=== PATIENT | female | born 1955 | race Two or more races ===

== ENCOUNTER 2016-08-30 13:04 | Inpatient (IN) | payer OTHER ==
[~2016-08-30] VITALS: Ht 162.6 cm; Wt 91.6 kg
--- NOTE | 2016-08-30 13:07 | NUR ---
AAOX3, CAME TO ER C/O EPIGASTRIC PAIN. RESPIRATION IS EVEN AND UNLABORED WITH NAD NOTED. SKIN IS WARM AND DRY. ASSISTED TO HOSPITAL GOWN, PLACED ON MONITOR AND WILL CONTINUOUSLY MONITOR THE PATIENT. AWAITING MD FOR EVAL.
[2016-08-30] MEDS ORDERED: ASPIRIN 325 MG TABLET ONE (13:28)
[2016-08-30] MEDS ORDERED: ASPIRIN 325 MG TABLET PO ONE (13:30)
[2016-08-30 13:31] LABS: BASOPHILS # (AUTO) 0.1 /CMM (0.0-0.2); BASOPHILS % (AUTO) 0.6 % (0.0-2.0); EOSINOPHILS # (AUTO) 0.1 /CMM (0.0-0.7); EOSINOPHILS % (AUTO) 0.5 % (0.0-6.0); HEMATOCRIT 44 % (33-45); HEMOGLOBIN 14.7 g/dL (11.5-14.8); LYMPHOCYTES # (AUTO) 1.6 /CMM (0.8-4.8); LYMPHOCYTES % (AUTO) 14.4 % (20.0-44.0); MEAN CORPUSCULAR HEMOGLOBIN 28 PG (26.0-33.0); MEAN CORPUSCULAR HGB CONC 33 g/dl (31.0-36.0); MEAN CORPUSCULAR VOLUME 83 fL (82-100); MONOCYTES # (AUTO) 0.4 /CMM (0.1-1.30); MONOCYTES % (AUTO) 3.9 % (2.0-12.0); NEUTROPHILS # (AUTO) 9.1 /CMM (1.8-8.9); NEUTROPHILS % (AUTO) 80.6 % (43.0-81.0); PLATELET COUNT (AUTO) 306 /CMM (150-450); RDW COEFFICIENT OF VARIATION 13.1 (11.5-15.0); RED BLOOD CELL COUNT(AUTO) 5.31 MIL/uL (4.0-5.2); WHITE BLOOD COUNT (AUTO) 11.3 K/uL (4.3-11.0)
--- NOTE | 2016-08-30 13:37 | NUR ---
CHEST XRAY IN PROGRESS AT BS
[2016-08-30 13:41] LABS: CARBON DIOXIDE 28 mmol/L (21-32); CHLORIDE 102 mmol/L (98-107); CREATININE 0.8 mg/dL (0.6-1.3); GFR 73 mL/min (>60); GLUCOSE 133 mg/dL (74-106); POTASSIUM 4.3 mmol/L (3.5-5.1); SODIUM SERUM 139 mmol/L (136-145); UREA NITROGEN, BLOOD 15 mg/dL (7-18)
[2016-08-30 13:45] LABS: INR 0.97 (0.87-1.13); PROTHROMBIN TIME 10.1 SECS (9.5-12.7)
[2016-08-30] MEDS ORDERED: CT SWABBABLE VALVE TRANS SET 1 EA INFUS.SET MC ONE (13:45)
[2016-08-30] MEDS ORDERED: IV NS 0.9% 250 ML IV ONE (13:45)
[2016-08-30] MEDS ORDERED: IOHEXOL-300 100 ML VIAL IV ONE (13:45)
[2016-08-30 13:49] LABS: TROPONIN I < 0.017 ng/mL (0.00-0.056)
--- NOTE | 2016-08-30 14:05 | NUR ---
PATIENT CAME BACK FROM CT ABDOMEN.
--- NOTE | 2016-08-30 15:07 | NUR ---
CALLED NURSING SUP. FOR TELE BED
--- NOTE | 2016-08-30 15:08 | NUR ---
[facility], DR.VU DAVIS OPERATIONAL INTELLIGENCE ANALYST
[2016-08-30] MEDS ORDERED: LOSA1TAB9 PO (15:25)
--- NOTE | 2016-08-30 16:14 | NUR ---
Report given to GERALD Atkinson for ANGELINE Tele 118-2.
[2016-08-30 16:30] VITALS: BP 163/89
--- NOTE | 2016-08-30 16:30 | NUR ---
RN NOTES RECEIVED PT FROM ER , A/Ox4, RESPIRATION EVEN AND UNLABORED, ON RA BRIE ANY SOB, C/O EPIGASTRIC PAIN, NO SKIN ISSUE NOTED, ON TELE SR IN 80'S , SR UP x3, CALL LIGHT WITHIN EASY REACH, PT ORIENTED TO ROOM AND SURROUNDING, CONTINUE PAIN MANAGEMENT AND CALL MD FOR ANY SIGNIFICANT CHANGES
[2016-08-30 17:00] VITALS: BP 163/89
[2016-08-30] MEDS ORDERED: MAG HYDROX/AL HYDROX/SIMETH 30 ML UDC PO PRN (17:00)
[2016-08-30] MEDS ORDERED: NITROGLYCERIN 0.4 MG/TAB BOTTLE SL PRN (17:00)
[2016-08-30] MEDS ORDERED: HYDROCODONE/APAP 5/325MG 1 EACH TABLET PO PRN (17:00)
[2016-08-30] MEDS ORDERED: ZOLPIDEM TARTRATE 5 MG TABLET PO PRN (17:00)
[2016-08-30] MEDS ORDERED: MORPHINE SULFATE INJ 2 MG/ML DISP.SYRIN IV PRN (17:00)
[2016-08-30] MEDS ORDERED: Z GUARD REMEDY 2 OZ OINT TP PRN (17:00)
[2016-08-30] MEDS ORDERED: ACETAMINOPHEN 325 MG TABLET PO PRN (17:00)
[2016-08-30] MEDS ORDERED: MAGNESIUM HYDROXIDE 30 ML UDC PO PRN (17:00)
[2016-08-30] MEDS ORDERED: ONDANSETRON HCL/PF 4 MG/2 ML VIAL IVP PRN (17:00)
[2016-08-30] MEDS: PANTOPRAZOLE 40 MG TABLET.DR PO SCH (17:41)
[2016-08-30] MEDS: hydrALAZINE HCL 10 MG TABLET PO PRN (17:42)
--- NOTE | 2016-08-30 18:00 | NUR ---
RN NOTES PROTONIX AND NITRO SL 1 TAB GIVEN , PT STATED HER PAIN LEVEL IS DOWN TO 4 , LEFT A VOICE MAIL FOR DR TUCKER REGARDING EKG RESULTS .CONTINUE TO MONITO PT CLOSELY.
--- NOTE | 2016-08-30 18:41 | NUR ---
RN NOTES PT C/O ABDOMINAL PAIN , DR DAVIS NOTIFIED REGARDING PAIN MEDS .
[2016-08-30] MEDS ORDERED: oxyCODONE/APAP (5/325 MG) 1 UDTAB TABLET PO PRN (19:00)
[2016-08-30] MEDS ORDERED: TRAMADOL HCL 50 MG TABLET PO PRN (19:00)
--- NOTE | 2016-08-30 19:30 | NUR ---
RN OPENING NOTES: RECEIVED PT AWAKE ON BED WITH FAMILY AT BEDSIDE. PT IS AWAKE ALOX4 AND VERBALLY RESPONSIVE ON ROOM AIR WITH EVEN AND UNLABORED BREATHING. ST ON MONITOR WITH HR AT 105 BPM. IV ACCESS REMAINED INTACT ON LAC G18. WITH COMPLAINTS OF SEVERE PAIN OVER ABDOMEN DESCRIBED SPASMIC OVER "HERNIA AREA". TO RENDER PAIN MEDS ORDERED. SAFETY MEASURES ENSURED AT ALL TIMES. CALL LIGHT WITHIN REACH. MONITORED ACCORDINGLY.
[2016-08-30 20:00] VITALS: BP 160/80
[2016-08-30] MEDS: HYDROMORPHONE 1 MG/1 ML DISP.SYRIN IV PRN (20:00)
[2016-08-31] VITALS (7 sets, daily range): BP systolic 129–162; BP diastolic 81–99
[2016-08-31] MEDS: HYDROMORPHONE 1 MG/1 ML DISP.SYRIN IV PRN ×3 (01:24→16:32)
[2016-08-31 06:39] LABS: BASOPHILS % (AUTO) 0.3 % (0.0-2.0); EOSINOPHILS # (AUTO) 0.1 /CMM (0.0-0.7); EOSINOPHILS % (AUTO) 0.4 % (0.0-6.0); HEMATOCRIT 43 % (33-45); HEMOGLOBIN 14.3 g/dL (11.5-14.8); LYMPHOCYTES # (AUTO) 1.9 /CMM (0.8-4.8); LYMPHOCYTES % (AUTO) 11.1 % (20.0-44.0); MEAN CORPUSCULAR HEMOGLOBIN 28 PG (26.0-33.0); MEAN CORPUSCULAR HGB CONC 33 g/dl (31.0-36.0); MEAN CORPUSCULAR VOLUME 83 fL (82-100); MONOCYTES # (AUTO) 0.9 /CMM (0.1-1.30); MONOCYTES % (AUTO) 5.6 % (2.0-12.0); NEUTROPHILS # (AUTO) 13.9 /CMM (1.8-8.9); NEUTROPHILS % (AUTO) 82.6 % (43.0-81.0); PLATELET COUNT (AUTO) 318 /CMM (150-450); RDW COEFFICIENT OF VARIATION 13.8 (11.5-15.0); RED BLOOD CELL COUNT(AUTO) 5.21 MIL/uL (4.0-5.2); WHITE BLOOD COUNT (AUTO) 16.8 K/uL (4.3-11.0)
[2016-08-31] MEDS: PANTOPRAZOLE 40 MG TABLET.DR PO SCH (06:46)
--- NOTE | 2016-08-31 06:52 | NUR ---
RN CLOSING NOTES: PT REMAINED IN BED NO COMPLAINTS OF CHEST PAIN NOR ABDOMINAL PAIN AT THIS TIME, ALTHOUGH WITH INTERMITTENT COMPLAINTS OF PAIN THROUGHOUT SHIFT. ST ON MONITOR HR AT 102 BPM. SAFETY MEASURES ENSURED. CONTINUOUSLY MONITORED.
[2016-08-31 07:09] LABS: ALBUMIN 3.7 g/dL (3.4-5.0); CALCIUM, SERUM 8.5 mg/dL (8.5-10.1); CREATININE 0.6 mg/dL (0.6-1.3); MAGNESIUM 1.7 mg/dL (1.8-2.4); POTASSIUM 3.2 mmol/L (3.5-5.1)
[2016-08-31 07:22] LABS: BILIRUBIN,TOTAL 0.4 mg/dL (0.2-1.0); PHOSPHORUS 4.3 mg/dL (2.5-4.9); TOTAL PROTEIN, SERUM 7.7 g/dL (6.4-8.2)
[2016-08-31] MEDS ORDERED: PANTOPRAZOLE 40 MG TABLET.DR PO SCH (07:30)
[2016-08-31] MEDS ORDERED: REGADENOSON 0.4 MG/5 ML DISP.SYRIN IVP ONE (08:30)
--- NOTE | 2016-08-31 13:00 | NUR ---
RN NOTE MORNING MEDS WERE HELD UNTIL THE NM STRESS TEST, PT RETURNED FROM STRESS TEST NOW, VS STABLE, WILL LET HER EAT AND ADMINISTER MEDS ORDERED AND CONTINUE TO MONITOR.
[2016-08-31] MEDS ORDERED: IV SET PRIMARY PUMP SET 1 EA INFUS.SET MC ONE (13:09)
[2016-08-31] MEDS: ASPIRIN 81 MG TAB.CHEW PO SCH (13:18)
[2016-08-31] MEDS: LOSARTAN POTASSIUM 50 MG TABLET PO SCH (13:19)
[2016-08-31] MEDS: hydrALAZINE HCL 10 MG TABLET PO PRN (13:20)
[2016-08-31] MEDS: HYDROCHLOROTHIAZIDE 25 MG TABLET PO SCH (13:20)
[2016-08-31] MEDS: Magnesium 1GM/D5W 100ML PREMIX 100 ML IV SCH ×2 (13:20→15:37)
[2016-08-31] MEDS: POTASSIUM CHLORIDE 20 MEQ TAB.PRT.SR PO SCH ×2 (13:20→15:37)
[2016-08-31] MEDS ORDERED: POTASSIUM CHLORIDE 20 MEQ TAB.PRT.SR PO SCH (15:30)
[2016-08-31] MEDS ORDERED: Magnesium 1GM/D5W 100ML PREMIX 100 ML IV SCH (15:30)
[2016-08-31 18:35] LABS: APPEARANCE,URINE SL CLOUDY (CLEAR); BILIRUBIN,URINE NEGATIVE (NEGATIVE); BLOOD, URINE NEGATIVE Ery/uL (NEGATIVE); COLOR,URINE YELLOW (YELLOW); KETONES,URINE NEGATIVE (NEGATIVE); LEUKOCYTE ESTERASE ,URINE TRACE (NEGATIVE); NITRITE, URINE NEGATIVE (NEGATIVE); PH,URINE 6.5 (5.0-8.0); PROTEIN,URINE NEGATIVE (NEGATIVE); UGLUCOSE NEGATIVE (NEGATIVE); UROBILINOGEN,URINE 0.2 EU/dL (0.2)
[2016-08-31 19:30] LABS: ADD URINE CULTURE NO; BACTERIA,URINE None seen /HPF (None Seen); RBC,URINE 0-2 /HPF (0-2); SQUAMOUS EPITHELIAL CELL,UR Rare /HPF (None Seen); WBC,URINE 0-2 /HPF (0-3)
[2016-09-01] VITALS: BP 150/84
--- NOTE | 2016-09-01 | NUR ---
RN :PT C/O ABDOMINAL PAIN AND UPSET STOMACH . INITIALLY OFFERED HER MAALOX BUT THEN PT REFUSED AND ASKED FOR IV PAIN MEDS . PRN DILAUDID GIVEN. KEPT PT NPO FOR PROCEDURE IN AM
[2016-09-01] MEDS: HYDROMORPHONE 1 MG/1 ML DISP.SYRIN IV PRN (00:06)
[2016-09-01 04:00] VITALS: BP 124/69
--- NOTE | 2016-09-01 06:51 | NUR ---
RN : DENTURES REMOVED, SURGICAL CHECKLIST DONE. VICKI RN TOOK PT TO OR AND WILL RETURN WITH TELEMETRY BOX.
[2016-09-01 06:57] LABS: BASOPHILS # (AUTO) 0.1 /CMM (0.0-0.2); BASOPHILS % (AUTO) 0.2 % (0.0-2.0); HEMATOCRIT 44 % (33-45); LYMPHOCYTES # (AUTO) 1.4 /CMM (0.8-4.8); LYMPHOCYTES % (AUTO) 6.1 % (20.0-44.0); MEAN CORPUSCULAR HEMOGLOBIN 28 PG (26.0-33.0); MEAN CORPUSCULAR HGB CONC 34 g/dl (31.0-36.0); MEAN CORPUSCULAR VOLUME 83 fL (82-100); MONOCYTES # (AUTO) 1.6 /CMM (0.1-1.30); MONOCYTES % (AUTO) 7.2 % (2.0-12.0); NEUTROPHILS # (AUTO) 19.6 /CMM (1.8-8.9); NEUTROPHILS % (AUTO) 86.5 % (43.0-81.0); PLATELET COUNT (AUTO) 321 /CMM (150-450); RDW COEFFICIENT OF VARIATION 14.2 (11.5-15.0); RED BLOOD CELL COUNT(AUTO) 5.36 MIL/uL (4.0-5.2); WHITE BLOOD COUNT (AUTO) 22.6 K/uL (4.3-11.0)
[2016-09-01 07:03] LABS: INR 1.01 (0.87-1.13); PROTHROMBIN TIME 10.8 SECS (9.5-12.7)
[2016-09-01 07:09] LABS: CALCIUM, SERUM 8.9 mg/dL (8.5-10.1); CREATININE 0.7 mg/dL (0.6-1.3); MAGNESIUM 1.9 mg/dL (1.8-2.4); POTASSIUM 3.3 mmol/L (3.5-5.1)
[2016-09-01] MEDS ORDERED: LIDOCAINE HCL/PF 1% 30 ML SDV ONE ×2 (07:10→08:45)
[2016-09-01] MEDS ORDERED: BUPIVACAINE MPF 0.5% W/EPI INJ 30 ML VIAL ONE ×2 (07:10→08:46)
[2016-09-01] MEDS ORDERED: MIDAZOLAM HCL 2 MG/2ML VIAL ONE (07:24)
[2016-09-01] MEDS ORDERED: FENTANYL PF 100MCG/2ML AMPUL ONE (07:24)
[2016-09-01] MEDS ORDERED: ROCURONIUM BROMIDE 50 MG/5 ML ONE (07:25)
[2016-09-01] MEDS: PANTOPRAZOLE 40 MG TABLET.DR PO SCH (07:30)
--- NOTE | 2016-09-01 07:39 | NUR ---
RN INITIAL NOTE RECEIVED PT FROM REEMA CARRERA. PT IN SURGERY FOR HERNIA REMOVED AWAITING RETURN.
[2016-09-01] MEDS ORDERED: METRONIDAZOLE 500MG/ NS 100ML 100 ML IV ONE (08:09)
[2016-09-01] MEDS ORDERED: BACITRACIN ZINC OINT (15 GM) 15 GM TUBE TP ONE (08:59)
[2016-09-01] MEDS: HYDROCHLOROTHIAZIDE 25 MG TABLET PO SCH (09:00)
[2016-09-01] MEDS: ASPIRIN 81 MG TAB.CHEW PO SCH (09:00)
[2016-09-01] MEDS: LOSARTAN POTASSIUM 50 MG TABLET PO SCH (09:00)
--- NOTE | 2016-09-01 10:00 | NUR ---
RN NOTE NOTE PT RETURNED FROM SURGERY B/P 112/54 P89R 18. SPO2 96% 3L NC OF S/S SOB. PAIN 0/10. PT AWAKE AND ALERT x3. ORDERS FAXED TO PHARMACY
[2016-09-01] MEDS ORDERED: ACETAMINOPHEN 325 MG TABLET PO ONE ×2 (11:00)
[2016-09-01] MEDS ORDERED: MORPHINE SULFATE INJ 4 MG/ML DISP.SYRIN IV PRN (11:00)
[2016-09-01] MEDS ORDERED: GABAPENTIN 300 MG CAPSULE PO ONE (11:00)
[2016-09-01] MEDS ORDERED: IBUPROFEN 400 MG TABLET PO ONE (11:00)
[2016-09-01] MEDS ORDERED: ONDANSETRON HCL/PF 4 MG/2 ML VIAL IV PRN (11:00)
[2016-09-01] MEDS ORDERED: HYDROCODONE/APAP 10/325MG 1 EA TABLET PO PRN (11:00)
[2016-09-01] MEDS ORDERED: IV SET PRIMARY PUMP SET 1 EA INFUS.SET MC ONE ×2 (11:12→11:42)
[2016-09-01] MEDS: IV LR 1000 ML 1,000 ML IV PRN (11:34)
[2016-09-01 12:00] VITALS: BP 118/69
[2016-09-01] MEDS ORDERED: K PHOS NEUTRAL 250 MG TABLET PO ONE (12:00)
[2016-09-01] MEDS ORDERED: POTASSIUM CHLORIDE 20 MEQ TAB.PRT.SR PO SCH (12:30)
[2016-09-01] MEDS ORDERED: SECONDARY IV SET 1 EA INFUS.SET MC ONE (13:01)
[2016-09-01] MEDS: PIPERACILLIN /TAZOBACTAM 3.375 G in IV D5W 50 ML IV SCH ×2 (13:13→20:17)
[2016-09-01 16:00] VITALS: BP 118/69
--- NOTE | 2016-09-01 19:30 | NUR ---
RN INITIAL NOTES RECEIVED REPORT FROM NURSE SHORT. PATIENT AWAKE ON BED WITH, FAMILY AT BEDSIDE. PATIENT IS AWAKE ALERT AND ORIENTED X4 AND VERBALLY RESPONSIVE, UNDERSTANDS [place]. ON ROOM AIR WITH EVEN AND UNLABORED BREATHING, TOLERATING WELL. ON TELEMETRY MONITORING, REVEALING SINUS RHYTHM, HR = 84 AT THIS TIME. IV ACCESS PATENT AND INTACT ON LAC #18G, IV FLUIDS INFUSING PRESCRIBED. PATIENT DENIES ANY SIGNIFICANT PAIN. NOTED WITH LOWER ABDOMINAL DRESSING, S/P HERNIA REPAIR TODAY 09/01/16. PATIENT KEPT COMFORTABLE. CALL LIGHT LEFT WITHIN EASY REACH, BED IN LOWEST AND LOCKED POSITION. WILL CONTINUE TO CLOSELY MONITOR
[2016-09-01 20:00] VITALS: BP 139/72
--- NOTE | 2016-09-01 20:05 | NUR ---
RN CLOSING NOTE PT A/O X3 . C/O PAIN 07/01 DECLINED PAIN MEDIATIONS EARLIER. PT ON RA. PT AMB TO RESTROOM. RESTING CLEAN WARM AND DRY. REPORT GIVEN TO PM NURSE. ALL PM MEDICATIONS GIVEN ALL ORDERS CARRIED OUT ALL SAFETY MEASURES IN PLACE.
[2016-09-01] MEDS: ACETAMINOPHEN 325 MG TABLET PO SCH (20:17)
[2016-09-01] MEDS: GABAPENTIN 300 MG CAPSULE PO SCH (20:17)
[2016-09-01] MEDS: IBUPROFEN 400 MG TABLET PO SCH (20:17)
[2016-09-02] VITALS: BP 119/72
[2016-09-02] MEDS: PIPERACILLIN /TAZOBACTAM 3.375 G in IV D5W 50 ML IV SCH ×3 (00:20→11:44)
[2016-09-02] MEDS: IV LR 1000 ML 1,000 ML IV PRN (00:20)
[2016-09-02 04:00] VITALS: BP_SYST 141; BP_SYST 93; BP_DIAS 65; BP_DIAS 69
[2016-09-02] MEDS: IBUPROFEN 400 MG TABLET PO SCH ×2 (05:19→12:35)
[2016-09-02] MEDS: ACETAMINOPHEN 325 MG TABLET PO SCH ×2 (05:19→12:36)
[2016-09-02] MEDS: GABAPENTIN 300 MG CAPSULE PO SCH ×2 (05:19→12:35)
[2016-09-02 07:00] LABS: BASOPHILS % (AUTO) 0.1 % (0.0-2.0); EOSINOPHILS # (AUTO) 0.1 /CMM (0.0-0.7); EOSINOPHILS % (AUTO) 0.3 % (0.0-6.0); HEMATOCRIT 38 % (33-45); HEMOGLOBIN 12.6 g/dL (11.5-14.8); LYMPHOCYTES # (AUTO) 1.2 /CMM (0.8-4.8); LYMPHOCYTES % (AUTO) 7.4 % (20.0-44.0); MEAN CORPUSCULAR HEMOGLOBIN 28 PG (26.0-33.0); MEAN CORPUSCULAR HGB CONC 33 g/dl (31.0-36.0); MEAN CORPUSCULAR VOLUME 83 fL (82-100); MONOCYTES # (AUTO) 1.3 /CMM (0.1-1.30); MONOCYTES % (AUTO) 7.8 % (2.0-12.0); NEUTROPHILS # (AUTO) 13.8 /CMM (1.8-8.9); NEUTROPHILS % (AUTO) 84.4 % (43.0-81.0); PLATELET COUNT (AUTO) 272 /CMM (150-450); RDW COEFFICIENT OF VARIATION 14.4 (11.5-15.0); RED BLOOD CELL COUNT(AUTO) 4.56 MIL/uL (4.0-5.2); WHITE BLOOD COUNT (AUTO) 16.4 K/uL (4.3-11.0)
--- NOTE | 2016-09-02 07:20 | NUR ---
RN INITIAL NOTE RECEIVED PT FORM JOHN RUIZ NURSE. PT A/O X4 . TELE SR89. IV LAC #18G LR @100 ML/HR. NO C/O PAIN PT RESTING COMFORTABLY. ALL SAFETY MEASURES IN PLACE WILL CONTINUE TO MONITOR. PT ABLE TO AMB TO RR.
[2016-09-02 07:25] LABS: CALCIUM, SERUM 8.2 mg/dL (8.5-10.1); CREATININE 0.9 mg/dL (0.6-1.3); PHOSPHORUS 3.1 mg/dL (2.5-4.9); POTASSIUM 3.3 mmol/L (3.5-5.1)
[2016-09-02 08:00] VITALS: BP 134/76
[2016-09-02] MEDS: LOSARTAN POTASSIUM 50 MG TABLET PO SCH (08:21)
[2016-09-02] MEDS: HYDROCHLOROTHIAZIDE 25 MG TABLET PO SCH (08:21)
[2016-09-02] MEDS: ASPIRIN 81 MG TAB.CHEW PO SCH (08:21)
[2016-09-02] MEDS ORDERED: PANTOPRAZOLE 40 MG VIAL IV SCH (09:00)
[2016-09-02 12:00] VITALS: BP 124/81
[2016-09-02] MEDS ORDERED: POTASSIUM CHLORIDE 20 MEQ TAB.PRT.SR PO ONE (12:30)
[2016-09-02] MEDS ORDERED: Losartan Potassium PO (13:37)
[2016-09-02] MEDS ORDERED: METR500T PO (13:37)
[2016-09-02] MEDS ORDERED: Ibuprofen PO (13:37)
[2016-09-02] MEDS ORDERED: CIPR-262 PO (13:37)
[2016-09-02] MEDS ORDERED: GABA300C PO (13:37)
--- NOTE | 2016-09-02 14:54 | NUR ---
RESTAURANT AREA DIRECTOR NOTE PT STABLE DC HOME WITH SON VIA PRIVATE CAR. IV REMOVED, ID BAND REMOVED. ALL DC INSTRUCTIONS GIVEN TO SON, ALL QUESTIONS ANSWERED, BELONGINGS LIST SIGNED AND PUT IN CHART. PT CLEAN AND DRY. ALL MEDICATIONS GIVEN ALL ORDERS CARRIED OUT. MIRNA HINDS WHEELED PT OUT.
== END 2016-09-02 15:00 | disposition home or self-care (01) | DRG 710 ==
LOC: ER 13:06 → TELE1 16:17
PROVIDERS: ADMIT Family Medicine; ATTEND Family Medicine
DX: A41.9 Sepsis, unspecified organism (principal); I11.9 Hypertensive heart disease without heart failure; K43.9 Ventral hernia without obstruction or gangrene; R07.9 Chest pain, unspecified; K42.9 Umbilical hernia without obstruction or gangrene; E66.9 Obesity, unspecified; Z90.49 Acquired absence of other specified parts of digestive tract; E11.9 Type 2 diabetes mellitus without complications; Q63.1 Lobulated, fused and horseshoe kidney
CPT/HCPCS: 36415; 71010-TC; 80048-TC; 80053-TC; 80061-TC; 81000-TC; 83735-TC; 84100-TC; 84484-TC; 85025-TC; 85610-TC; 85730-TC; 86850-TC; 87081-TC; 88302-TC; 88305-TC; 93307-TC; A4606; A6209; A6402; A9502; C1781; C9113; J0690; J1170; J1885; J2250; J2370; J2405; J2543; J2704; J2710; J2785; J3010; J3475; J3490; J7050; J7060; J7120; Q9967; Z7610